=== PATIENT | male | born 2000 | race African-American/Black ===

== ENCOUNTER 2020-04-24 14:56 | Emergency (ER) | payer SELFPAY ==
[~2020-04-24] VITALS: Ht 182.9 cm; Wt 100.0 kg
[2020-04-24] MEDS ORDERED: ONDANSETRON PF 4 MG/2 ML VIAL. ONE (15:09)
[2020-04-24] MEDS ORDERED: IV NORMAL SALINE 1,000ML 1,000 ML IV ONE (15:15)
[2020-04-24] MEDS ORDERED: ONDANSETRON PF 4 MG/2 ML VIAL. IVP ONE ×2 (15:15→16:00)
[2020-04-24 15:29] LABS: BASO # 0.1 x10^3/uL (0.0-0.2); BASO % 0 % (0-3); EOS % 0 % (0-3); HEMATOCRIT 49.6 % (39.0-53.0); HEMOGLOBIN 16.5 g/dL (13.0-17.5); LYMPH # 0.9 x10^3/uL (1.0-4.8); LYMPH % 7 % (24-48); MEAN CORPUSCULAR HEMOGLOBIN 30 pg (25-35); MEAN CORPUSCULAR HGB CONC 33 g/dL (31-37); MEAN CORPUSCULAR VOLUME 90 fL (79-100); MONO # 0.4 x10^3/uL (0.0-1.1); MONO % 3 % (0-9); NEUT # 12.7 x10^3uL (1.8-7.7); NEUT % 90 % (31-73); PLATELET COUNT 330 x10^3/uL (140-400); RED BLOOD COUNT 5.52 x10^6/uL (4.30-5.70); RED CELL DISTRIBUTION WIDTH 13.2 % (11.5-14.5); WHITE BLOOD COUNT 14.1 x10^3/uL (4.0-11.0)
--- NOTE | 2020-04-24 15:34 | PHYS DOC ---
Past History Past Medical History: No Pertinent History Past Surgical History: No Surgical History Alcohol Use: None General Adult EDM: Chief Complaint: NAUSEA/VOMITING/DIARRHEA HPI: HPI: 19-year-old male presents with nausea and vomiting. It started this morning after he woke up. He was feeling normal yesterday. He has had chills but no measured fever. He is worried about getting dehydrated. He has not had diarrhea. He has some mild cramping epigastric pain. Review of Systems: Review of Systems: Constitutional: Denies fever or chills Eyes: Denies change in visual acuity HENT: Denies nasal congestion or sore throat Respiratory: Denies cough or shortness of breath Cardiovascular: Denies chest pain or edema GI: Epigastric abdominal pain, nausea, vomiting. Denies bloody stools or diarrhea : Denies dysuria Musculoskeletal: Denies back pain or joint pain Integument: Denies rash Neurologic: Denies headache, focal weakness or sensory changes Endocrine: Denies polyuria or polydipsia Lymphatic: Denies swollen glands Psychiatric: Denies depression or anxiety Heart Score: Risk Factors: Risk Factors: DM, Current or recent (<one month) smoker, HTN, HLP, family history of CAD, obesity. Risk Scores: Score 0 - 3: 2.5% MACE over next 6 weeks - Discharge Home Score 4 - 6: 20.3% MACE over next 6 weeks - Admit for Clinical Observation Score 7 - 10: 72.7% MACE over next 6 weeks - Early Invasive Strategies Current Medications: Current Meds: Current Medications Medications (Trade) Dose Ordered Sig/Tyrel Start Time Stop Time Status Last Admin Dose Admin Ondansetron HCl (Zofran) 4 mg 1X ONCE 04/24/20 15:15 04/24/20 15:26 DC 04/24/20 15:16 4 MG Prochlorperazine Edisylate (Compazine) 10 mg 1X ONCE 04/24/20 15:30 04/24/20 15:31 UNV Sodium Chloride 1,000 ml @ 1,000 mls/hr 1X ONCE 04/24/20 15:15 04/24/20 16:14 04/24/20 15:15 1,000 MLS/HR Allergies: Allergies: Allergies Coded Allergies Type Severity Reaction Last Updated Verified No Known Drug Allergies 04/24/20 No Physical Exam: PE: Constitutional: Well developed, well nourished, mild acute distress, non-toxic appearance. [] HENT: Normocephalic, atraumatic, bilateral external ears normal, oropharynx moist, no oral exudates, nose normal. [] Eyes: PERRLA, EOMI, conjunctiva normal, no discharge. [] Neck: Normal range of motion, no tenderness, supple, no stridor. [] Cardiovascular: Heart rate regular rhythm, no murmur [] Lungs & Thorax: Bilateral breath sounds clear to auscultation [] Abdomen: Bowel sounds normal, soft, epigastric tenderness, no masses, no pulsatile masses. [] Skin: Warm, dry, no erythema, no rash. [] Back: No tenderness, no CVA tenderness. [] Extremities: No tenderness, no cyanosis, no clubbing, ROM intact, no edema. [] Neurologic: Alert and oriented X 3, normal motor function, normal sensory function, no focal deficits noted. [] Psychologic: Affect normal, judgement normal, mood normal. [] Current Patient Data: Labs: Laboratory Tests Test 04/24/20 15:16 White Blood Count 14.1 x10^3/uL (4.0-11.0) H Red Blood Count 5.52 x10^6/uL (4.30-5.70) Hemoglobin 16.5 g/dL (13.0-17.5) Hematocrit 49.6 % (39.0-53.0) Mean Corpuscular Volume 90 fL (79-100) Mean Corpuscular Hemoglobin 30 pg (25-35) Mean Corpuscular Hemoglobin Concent 33 g/dL (31-37) Red Cell Distribution Width 13.2 % (11.5-14.5) Platelet Count 330 x10^3/uL (140-400) Neutrophils (%) (Auto) 90 % (31-73) H Lymphocytes (%) (Auto) 7 % (24-48) L Monocytes (%) (Auto) 3 % (0-9) Eosinophils (%) (Auto) 0 % (0-3) Basophils (%) (Auto) 0 % (0-3) Neutrophils # (Auto) 12.7 x10^3uL (1.8-7.7) H Lymphocytes # (Auto) 0.9 x10^3/uL (1.0-4.8) L Monocytes # (Auto) 0.4 x10^3/uL (0.0-1.1) Eosinophils # (Auto) 0.0 x10^3/uL (0.0-0.7) Basophils # (Auto) 0.1 x10^3/uL (0.0-0.2) Vital Signs: Vital Signs Date Time Temp Pulse Resp B/P (MAP) Pulse Ox O2 Delivery O2 Flow Rate FiO2 30/20 15:10 97.9 EKG: EKG: [] Radiology/Procedures: Radiology/Procedures: [] Impressions: CT study of the abdomen and pelvis with contrast Clinical indications: Epigastric abdominal pain. TECHNIQUE: After IV infusion of 75 cc of Omnipaque 300, helical CT scanning of the abdomen and pelvis was performed. No GI contrast was administered. This may decrease the sensitivity to detect GI tract pathology. PQRS compliance Statement One or more of the following individualized dose reduction techniques were utilized for this study: 1. Automated exposure control 2. Adjustment of the mA and/or kV according to patient size 3. Use of iterative reconstruction technique COMPARISON: April 27, 2010. FINDINGS: The liver and spleen and pancreas are normal. The gallbladder is normal and no extra hepatic biliary ductal dilatation is seen. No adrenal mass is evident. Both kidneys are normal without hydronephrosis or hydroureter or urinary tract stone. Urinary bladder is not abnormally distended. No focal aneurysmal dilatation of the abdominal aorta is seen. No enlarged retroperitoneal abdominal or pelvic lymphadenopathy is evident. Mesenteric lymph nodes are seen within the right lower quadrant with the largest measuring 15 mm. Mesenteric lymph nodes were seen here on the previous study and are less prominent. Sigmoid diverticulosis is seen without diverticulitis. There is wall thickening of the ascending colon and transverse colon. This could be seen with segmental colitis. The terminal ileum is unremarkable. The appendix is normal. No obstructive bowel pattern is seen. No free air or free fluid or mesenteric edema is seen. No anterior abdominal wall hernia is seen. No lung base consolidation is evident. No lytic process is seen. IMPRESSION: Wall thickening of the ascending colon and transverse colon which may be due to incomplete distention but could be seen with segmental colitis. There are right lower quadrant mesenteric lymph nodes which may be seen with mesenteric lymphadenitis. Prominent mesenteric lymph nodes or seen here on the previous study in 2009 as well. Sigmoid diverticulosis without diverticulitis. The appendix is normal. Electronically signed by: Eduardo Priest MD (04/24/2020 5:13 PM) [id number] DICTATED AND SIGNED BY: EDUARDO PRIEST MD DATE: 04/24/20 1713 CC: MONSE PATE DO; PCP,NO ~ Course & Med Decision Making: Course & Med Decision Making Pertinent Labs and Imaging studies reviewed. (See chart for details) The patient's labs are unremarkable. He does have a slightly elevated white co unt. He is complaining of abdominal pain so I have ordered a CT of the abdomen and pelvis. His urine drug screen is positive for benzodiazepines, cocaine, and marijuana. I suspect this is a lot to do with his current condition. The patient CT does suggest possible colitis but is not definitive. See official read for more details. This will likely resolve on its own. The patient is stable for discharge at this time. I have advised that he stop doing drugs. [] Dragon Disclaimer: Dragon Disclaimer: This electronic medical record was generated, in whole or in part, using a voice recognition dictation system. Departure Departure: Impression: Primary Impression: Marijuana abuse Additional Impressions: Cocaine abuse Benzodiazepine abuse Nausea & vomiting Qualified Codes: R11.2 - Nausea with vomiting, unspecified Disposition: 01 HOME/RESIDENCE PRIOR TO ADM Condition: IMPROVED Referrals: PCP,ZENOBIA (PCP) Patient Instructions: Alcohol and Drug Addiction, Finding Treatment, Nausea and Vomiting, [id number] Scripts Ondansetron (ONDANSETRON ODT) 4 Mg Tab.rapdis 1 TAB PO PRN Q6-8HRS PRN for VOMITING, #16 TAB Prov: MONSE PATE DO 04/24/20 MONSE PATE DO April 24, 2020 15:34
[2020-04-24] MEDS ORDERED: PROCHLORPERAZINE 10 MG/2 ML VIAL. IV ONE (15:40)
[2020-04-24 15:45] LABS: CALCIUM 10.1 mg/dL (8.5-10.1); CREATININE 1.1 mg/dL (0.7-1.3); GFR 102.2; POTASSIUM 3.7 mmol/L (3.5-5.1)
[2020-04-24 15:53] LABS: ALBUMIN 4.9 g/dL (3.4-5.0); ALBUMIN/GLOBULIN RATIO 1.2 (1.0-1.7); TOTAL BILIRUBIN 1.1 mg/dL (0.2-1.0)
[2020-04-24] MEDS ORDERED: KETOROLAC 30 MG/ML VIAL. ONE (15:58)
[2020-04-24] MEDS ORDERED: KETOROLAC 30 MG/ML VIAL. IVP ONE (16:00)
[2020-04-24] MEDS ORDERED: IOHEXOL 300 MG/ML 75 ML VIAL. IV ONE (16:15)
[2020-04-24 16:16] LABS: BARBITURATES NEG (NEG); BENZODIAZEPINES POS (NEG); CANNABINOIDS POS (NEG); COCAINE POS (NEG); METHADONE NEG (NEG); OPIATES NEG (NEG); PHENCYCLIDINE NEG (NEG)
[2020-04-24 16:17] LABS: AMPHETAMINE/METHAMPHETAMINE NEG (NEG)
[2020-04-24 16:23] LABS: BILIRUBIN,URINE NEG (NEG); CLARITY,URINE HAZY; COLOR,URINE AMBER; GLUCOSE,URINE NEG (NEG)
[2020-04-24 16:24] LABS: BACTERIA,URINE MANY /HPF (0-FEW); NITRITE,URINE NEG (NEG); RBC,URINE OCC /HPF (0-2); SQUAMOUS EPITHELIAL CELL,UR OCC /LPF; UROBILINOGEN,URINE 0.2 mg/dL (0.2 mg/dL)
--- NOTE | 2020-04-24 17:16 | RAD ---
CT study of the abdomen and pelvis with contrast Clinical indications: Epigastric abdominal pain. TECHNIQUE: After IV infusion of 75 cc of Omnipaque 300, helical CT scanning of the abdomen and pelvis was performed. No GI contrast was administered. This may decrease the sensitivity to detect GI tract pathology. PQRS compliance Statement One or more of the following individualized dose reduction techniques were utilized for this study: 1. Automated exposure control 2. Adjustment of the mA and/or kV according to patient size 3. Use of iterative reconstruction technique COMPARISON: April 27, 2010. FINDINGS: The liver and spleen and pancreas are normal. The gallbladder is normal and no extra hepatic biliary ductal dilatation is seen. No adrenal mass is evident. Both kidneys are normal without hydronephrosis or hydroureter or urinary tract stone. Urinary bladder is not abnormally distended. No focal aneurysmal dilatation of the abdominal aorta is seen. No enlarged retroperitoneal abdominal or pelvic lymphadenopathy is evident. Mesenteric lymph nodes are seen within the right lower quadrant with the largest measuring 15 mm. Mesenteric lymph nodes were seen here on the previous study and are less prominent. Sigmoid diverticulosis is seen without diverticulitis. There is wall thickening of the ascending colon and transverse colon. This could be seen with segmental colitis. The terminal ileum is unremarkable. The appendix is normal. No obstructive bowel pattern is seen. No free air or free fluid or mesenteric edema is seen. No anterior abdominal wall hernia is seen. No lung base consolidation is evident. No lytic process is seen. IMPRESSION: Wall thickening of the ascending colon and transverse colon which may be due to incomplete distention but could be seen with segmental colitis. There are right lower quadrant mesenteric lymph nodes which may be seen with mesenteric lymphadenitis. Prominent mesenteric lymph nodes or seen here on the previous study in 2009 as well. Sigmoid diverticulosis without diverticulitis. The appendix is normal. Electronically signed by: Indra Priest MD (04/24/2020 5:13 PM) [id number]
[2020-04-24] MEDS ORDERED: ONDA4TAB12 PO (17:24)
[2020-04-24 17:25] VITALS: BP 126/66
== END 2020-04-24 17:30 | disposition home or self-care (01) ==
LOC: ER 14:56
DX: F12.10 Cannabis abuse, uncomplicated (principal); F14.10 Cocaine abuse, uncomplicated; F19.10 Other psychoactive substance abuse, uncomplicated; R11.2 Nausea with vomiting, unspecified
CPT/HCPCS: 36415; 74177; 80053; 80307; 81001; 83690; 85025; 87086; 96361; 96374; 96375; 96376; 99285; J0780; J1885; J2405; Q9967; J7030

== ENCOUNTER 2021-03-27 16:10 | Emergency (ER) | payer SELFPAY ==
[~2021-03-27] VITALS: Ht 182.9 cm; Wt 96.4 kg
[~2021-03-27 16:10] MED LIST: ONDA4TAB12 PO
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
[2021-03-27] MEDS ORDERED: IV NORMAL SALINE 1,000ML 1,000 ML IV SCH (17:30)
[2021-03-27] MEDS ORDERED: DIPH,PERTUSS(ACELL),TET VAC/PF 0.5 ML SYRINGE. VAX IM ONE (17:30)
[2021-03-27] MEDS ORDERED: NEOMY/BACITR/POLYMYXIN OINT PACKET. TP ONE ×2 (17:30→18:15)
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
[2021-03-27] MEDS ORDERED: LIDOCAINE 1% Multi-Dose 20 ML VIAL. ONE (18:13)
[2021-03-27] MEDS ORDERED: LIDOCAINE 1% PF 30 ML VIAL. INJ ONE (18:15)
[2021-03-27] MEDS ORDERED: AMOX1TAB61 PO (18:16)
[2021-03-27 18:44] VITALS: BP 132/81
== END 2021-03-27 19:21 | disposition home or self-care (01) ==
LOC: ER 16:10
DX: S01.81XA Laceration without foreign body of other part of head, initial encounter (principal); J01.00 Acute maxillary sinusitis, unspecified; Y08.89XA Assault by other specified means, initial encounter; Y93.89 Activity, other specified; Y92.89 Other specified places as the place of occurrence of the external cause; Y99.8 Other external cause status
CPT/HCPCS: 12013; 70450; 70486; 72125; 90471; 90715; 99285-25